=== PATIENT | female | born 1960 | race Hispanic/Latino ===

== ENCOUNTER 2017-06-11 05:47 | Inpatient (IN) | payer BC ==
--- NOTE | 2017-06-05 13:00 | Anesthesia Consultation ---
Anesthesia Consult and Med Hx Date of service: 06/05/17 - Airway Anesthetic Teeth Evaluation: Dentures ROM Head & Neck: Adequate Mental/Hyoid Distance: Adequate Mallampati Class: Class I Intubation Access Assessment: Good - Pulmonary Exam CTA: Yes - Cardiac Exam Cardiac Exam: RRR - Pre-Operative Health Status ASA Pre-Surgery Classification: ASA3 Proposed Anesthetic Plan: General - Pulmonary Hx Smoking: Yes (30 yr history) - Cardiovascular System Hx Hypertension: No - Central Nervous System Hx Psychiatric Problems: No - Gastrointestinal Hx Ulcer: Yes - Endocrine Hx Non-Insulin Dependent Diabetes: No - Other Systems Hx Alcohol Use: Yes (occas) Hx Cancer: No
[2017-06-05 13:16] LABS: Basophils % (Auto) 0.9 % (0.0-1.8); Eosinophils % (Auto) 2.2 % (0.0-4.3); Hematocrit 52.6 % (30.3-42.9); Hemoglobin 17.9 gm/dl (10.1-14.3); Mean Corpuscular HGB Conc 34 % (30-34); Mean Corpuscular Hemoglobin 33 pg (28-32); Mean Corpuscular Volume 97 fl (79-97); Platelet Count 282 K/mm3 (140-440); Red Blood Count 5.41 M/mm3 (3.65-5.03); Red Cell Distribution Width 12.1 % (13.2-15.2); White Blood Count 7.7 K/mm3 (4.5-11.0)
[2017-06-05 13:17] LABS: INR 0.96 (0.87-1.13)
[2017-06-05 13:19] LABS: Anion Gap 20 mmol/L; Blood Urea Nitrogen 5 mg/dL (7-17); Calcium 9.7 mg/dL (8.4-10.2); Carbon Dioxide 25 mmol/L (22-30); Chloride 94.6 mmol/L (98-107); Glucose 98 mg/dL (65-100); Potassium 4.1 mmol/L (3.6-5.0); Sodium 135 mmol/L (137-145)
--- NOTE | 2017-06-06 14:18 | Admit Criteria Form ---
Admission Criteria Documentation: AMBULATORY SURGERY EXCEPTION CRITERIA Ambulatory Surgery Exception Criteria ( Place 'X' for any and all applicable criteria): Surgery or procedure performed on ambulatory basis may require inpatient stay for[A] ANY ONE of the following(1)(2)(3)(4)(5)(6)(7)(8)(9): [X] I. A preoperative situation, condition, or finding that warrants inpatient stay as indicated by ANY ONE of the following: [] a) Inpatient care needed because of severity of a disease or condition rather than the surgery (eg, severe cardiac or respiratory disease, severe infection) (15) (16 ) (17) (18) [] b) Emergent procedure (eg, angioplasty for acute ischemia)(19) [] c) Complex surgical approach or situation as indicated by ANY ONE of the following(3): [] i) Open approach needed instead of usual endoscopic, transcatheter, or other less invasive procedure [] ii) Difficult approach because of previous operation [] iii) Airway monitoring required after open neck procedures(20)(21) [] iv) Large mass requiring unusually extensive dissection [] v) Additional complicating feature requiring inpatient care (eg, drain management)(22(23): [X] d) Major surgery in a pt with high anesthetic risk as indicated by ANY ONE of the following (2)(3)(5)(7)(8): [X] i) ASA risk class III or higher (severe systemic disease impairing function) [D] [] ii) Advanced age (eg, older than 85 years)(14)(24) [] iii) Symptomatic heart failure(25) [] iv) Symptomatic asthma or COPD(8)(21) [] v) Morbid obesity with hemodynamic or respiratory problems(20)( 21)(26)(27) [] vi) Obstructive sleep apnea(20)(21) [] vii) Former premature infants who are younger than 60 weeks [] viii) High risk for severe postoperative abnormalities (eg, severe postoperative hypocalcemia after parathyroidectomy for severe hyperparathyroidism)(27)( 28) [] ix) Unstable angina(25) [] e) Drug-related risk requiring inpatient stay as indicated by ANY ONE of the following(5)(10)(14)(32)(33) [] i) Procedure requires discontinuing drugs or other therapy (eg , antiarrhythmic medication, antiseizure medication), which necessitates inpatient observation or treatment.(18)(31) [] ii) Major surgery and high risk drug use as indicated by ANY ONE of the following: [] 1) Active abuse of cocaine or similar drug [] 2) Monoamine oxidase inhibitor use [] 3) Other drug identified as posing risk [] f) Inadequate outpatient care situation as indicated by ANY ONE of the following(5)(10)(14)(32)(33) [] i) Patient lives remote from medical facility and procedure has urgent complication potential, and temporary nearby residence cannot be arranged [] ii) Patient will have postprocedure incapacitation and inadequate assistance at home, or alternative level of care cannot be arranged. [] iii) Patient will have long general anesthesia or procedure side effect resolution time, and competent person to stay with patient on first postoperative night at home or alternative level of care cannot be arranged. []iv) Other inadequate outpatient situation that cannot be handled by other means [] II. A perioperative event, condition, or finding that warrants inpatient stay as indicated by ANY ONE of the following (1)(2)(3): [] a) Inadequate physiologic recovery: cardiovascular, respiratory, or hemodynamic status not normal or near preoperative baseline(18) [] b) Hemodynamic instability [] c) Patient not alert with near normal or baseline mental status [] d) Temperature not normal or as expected and not appropriate for outpatient treatment of condition [] e) Ambulatory or appropriate activity level status not yet achieved post procedure [E](34)(35)(36) [] f) Operative site not appropriate (eg, unexpected or excessive drainage or bleeding) [] g) Postoperative effects not resolved or adequately managed (eg, significant pain or vomiting not appropriate for outpatient or next level of care)(10)(12) [] h) Complicating features requiring inpatient care as indicated by ANY ONE of the following(37): [] i) Severe complications of procedure (eg, bowel injury, airway compromise, vascular injury,severe hemorrhage) [] ii) Extensive (eg, dissection far beyond usual scope of procedure ) or prolonged (eg, 120 minutes beyond usual) surgery needed requiring inpatient postoperative care [] iii) Conversion to an open or complex procedure that requires inpatient care (eg, open vs laparoscopic cholecystectomy, abdominal vs vaginal hysterectomy)(38) [] iv) Comorbid condition or test result identified during or post procedure that requires inpatient care (7) [] v) Malignant hyperthermia(30) [] vi) Other complicating feature requiring inpatient care(22)(23) Inpatient stay may be needed until ALL of the following are present (1)(2)(3)(4) (5)(6)(10)(14)(33)(40): []a) Physiologic recovery: cardiovascular, respiratory, and hemodynamic status normal or near preoperative baseline []b) Hemodynamic stability []c) Patient alert, with near normal or baseline mental status []d) Temperature appropriate: patient afebrile or temperature appropriate for outpt treatment of condition []e) Activity level appropriate: ambulatory or appropriate activity level post procedure []f) Operative site appropriate as indicated by ALL of the following: []i) Site dry or with expected drainage []ii) Any blood noted is as expected for procedure. []g) Postoperative effects resolved or managed as indicated by ALL of the following: []i) Pain management appropriate for outpatient (or next level of) care(10) []ii) Minimal nausea and vomiting: if present, successfully treated with oral medication(12) []iii) Headache, dizziness, or drowsiness (if present) are mild. []h) Voiding status acceptable as indicated by ANY ONE of the following: []i) Voiding spontaneously []ii) No voiding but instructions given for follow-up in 6 to 8 hours []iii) Urinary catheter in place, and instructions given for follow-up []i) Complicating features requiring inpatient care manageable at a lower level of care(37) []j) Comorbid conditions manageable at a lower level of care(37) The original [employer] content created by [employer] has been revised. The portions of the content which have been revised are identified through the use of italic text or in bold, and [facility] [employer] has neither reviewed nor approved the modified material. All other unmodified content is copyright [employer]. Please see references footnoted in the original [employer] edition 2016 Admission Criteria Met: Yes
[2017-06-11] MEDS ORDERED: ANCEF/STERILE WATER 2 GM/20 ML 2 GM/20 ML SYRINGE IV NR (06:00)
[2017-06-11] MEDS ORDERED: NACL BACTERIOSTATIC INFILTRATI ONE (06:39)
[2017-06-11] MEDS ORDERED: NACL 0.9% 1000 ML 1,000 ML IV SCH ×2 (07:00→12:00)
[2017-06-11] MEDS ORDERED: VERSED IV NR (07:00)
[2017-06-11] MEDS ORDERED: SUBLIMAZE ONE (07:23)
[2017-06-11] MEDS ORDERED: XYLOCAINE MPF 2% ONE (07:23)
[2017-06-11] MEDS ORDERED: ZEMURON IV ONE (07:23)
[2017-06-11] MEDS ORDERED: AMIDATE IV ONE (07:23)
[2017-06-11] MEDS ORDERED: DIPRIVAN 10 MG/ML IV ONE (07:24)
[2017-06-11] MEDS ORDERED: PROTAMINE SULFATE ONE (07:45)
[2017-06-11] MEDS ORDERED: PAPAVERINE ONE (07:45)
[2017-06-11] MEDS ORDERED: RIFADIN ONE (07:46)
[2017-06-11] MEDS ORDERED: XYLOCAINE 1% MPF 5 mL ONE (07:46)
[2017-06-11] MEDS ORDERED: NACL 0.9% 500 ML 500 ML ONE (07:46)
[2017-06-11] MEDS ORDERED: MARCAINE 0.25% INFILTRATI ONE (07:46)
[2017-06-11] MEDS ORDERED: GELFOAM TP ONE (07:46)
[2017-06-11] MEDS ORDERED: THROMBIN (BOVINE) TP ONE (07:46)
[2017-06-11] MEDS ORDERED: HEPARIN 10,000 UNITS/10 ML ONE (07:46)
[2017-06-11] MEDS ORDERED: ePHEDrine SULFATE ONE (09:12)
[2017-06-11] MEDS ORDERED: HEPARIN 10,000 UNITS/10 ML 2,000 UNIT in NACL 0.9% 500 ML 500 ML IR ONE (09:39)
[2017-06-11] MEDS ORDERED: MARCAINE 0.5% INFILTRATI ONE ×2 (09:39)
[2017-06-11] MEDS ORDERED: NACL 0.9% IR ONE (09:39)
[2017-06-11] MEDS ORDERED: RIFADIN 600 MG in NACL 0.9% 50 ML IR ONE (09:40)
[2017-06-11] MEDS ORDERED: NEO SYNEPHRINE ONE (10:22)
[2017-06-11] MEDS ORDERED: ZOFRAN ONE (10:22)
[2017-06-11] MEDS ORDERED: NACL 0.9% 100 ML ONE (10:22)
[2017-06-11] MEDS ORDERED: DECADRON ONE (10:22)
[2017-06-11] MEDS ORDERED: NEOSTIGMINE ONE (11:02)
[2017-06-11] MEDS ORDERED: ROBINUL ONE (11:02)
[2017-06-11] MEDS ORDERED: MORPHINE IV PRN (11:05)
[2017-06-11] MEDS ORDERED: NORCO 5/325 PO PRN (11:05)
--- NOTE | 2017-06-11 11:21 | Operative Report ---
Operative Report Operative Report: Date of procedure: 06/11/2017 Pre-operative diagnosis: Right Carotid Artery Stenosis Post-operative diagnosis: Right Carotid Artery Stenosis Procedure(s): 1. Right Carotid Endarterectomy With Patch Angioplasty 2. Intraoperative Completion Duplex Surgeon: Basim Hyatt MD Dope Mixer: Laura Rodriguez M.D. Anesthesia: General Endotracheal Anesthesia EBL: 150 mL Findings: Significant internal right carotid artery stenosis. Specimen: Right Carotid Plaque Counts: Correct Complications: None Condition: Stable Indication: The patient is a 56-year-old female with a history of asymptomatic carotid artery stenosis was identified on carotid duplex. She had a CT that confirmed the diagnosis of greater than 80% stenosis without any other significant findings. She had cardiac clearance and was otherwise found to be a suitable candidate for carotid endarterectomy. She was given the risk, benefits, and alternative procedures and consented to the procedure. Description of Procedure: The patient was brought to the operating room and laid in supine position. After general endotracheal anesthesia was achieved the patient was placed in beachchair position with her head elevated and turned slightly to the left. The patient's neck and chest were prepped and draped in normal fashion. An oblique incision was then created along the anterior border of the sternocleidomastoid. The incision was then carried down to the facial vein using sharp dissection. The facial vein was then dissected out circumferentially, suture ligated and divided. The dissection was then carried down to the common carotid using sharp dissection. The common carotid artery was dissected out circumferentially taking care to avoid the vagus nerve which was identified and avoided. The artery was then controlled with a large vessel loop. The dissection was carried up along the external carotid and the superficial thyroid artery was identified dissected out circumferentially and controlled with a 2-0 silk. The external carotid was dissected out and controlled a small vessel loop. I then dissected out the internal carotid artery well above the plaque which was identified by a change in hue of the artery from yellow to blue and palpation of the artery over a right angle. The hypoglossal nerve was identified and avoided. I controlled the internal carotid artery with a small vessel and at this point the patient was systemically heparinized with heparin IV. Once the heparin had circulated for 3 minute I clamped the internal carotid artery followed by the common carotid and then the external Carotid artery. I created an arteriotomy extending from the common carotid into the internal carotid, well above the plaque, using an 11 blade and Jerez scissors. I then flashed the internal carotid artery to check for adequate backbleeding. Once ensure there was adequate backbleeding reclamped the artery and used a [place] blade to dissect the plaque away from the artery. I used a right angle to continue the dissection of this plane from lateral to medial and then divided the plaque using Jerez scissors. I then trimmed the plaque proximally using Jerez and then teased the plaque away from the distal endpoint insuring that there were no areas of dissection or intimal flaps. These plaque forceps to remove all loose debris and then flushed the artery with heparinized saline. I then closed the artery using the Dacron patch and two 6-0 Prolenes in running fashion. Prior to completing the closure I flushed all arteries to remove all loose debris and then flushed the artery with heparinized saline. I then completed the closure in an flashed the internal carotid, reclamped and then removed the clamp from the common carotid followed by the external carotid and allowed any loose debris to flush into the external carotid. I then removed the clamp from the internal carotid artery. Hemostasis was achieved with repair sutures with 6-0 Prolene in interrupted fashion and a combination of direct pressure with Quick Clot. Once hemostasis was achieved I performed an intraoperative duplex that demonstrated no evidence of dissection and normalization of internal carotid velocity. I then anesthetized the wound with Marcaine and closed in 2 layers using a 3-0 Vicryl in running in the deep dermal layer and a 4-0 Monocryl in running in the subcuticular layer and dressed it with the Surgiseal. The patient tolerated the procedure well all sponge needle and instrument counts were correct the patient was taken to the recovery area in stable condition.
[2017-06-11] MEDS ORDERED: NIPRIDE 50 MG in D5W 248 ML IV SCH (12:00)
[2017-06-11] MEDS ORDERED: INTROPIN DRIP 800 MG/D5W 250 ML 800 MG/250 ML BAG IV SCH (12:00)
[2017-06-11] MEDS ORDERED: ANCEF/NS 1 GM/50 ML 1 GM/50 ML BAG IV SCH (12:00)
--- NOTE | 2017-06-11 12:13 | Post Anesthesia Evaluation ---
- Post Anesthesia Evaluation Patient Participated: Yes Airway Patent: Yes Stable Respiratory Function: Yes Nausea/Vomiting: No Temp > 96.8F: Yes Pain Manageable: Yes Adequeate Hydration: Yes Anesthesia Complications: No Block Receding Appropriately: Not Applicable Patient on Ventilator: No
[2017-06-11] MEDS: DILAUDID IV PRN ×2 (12:20→12:35)
[2017-06-11] MEDS: ANCEF/NS 1 GM/50 ML 1 GM/50 ML BAG IV SCH (16:23)
[2017-06-11] MEDS ORDERED: NON-FORMULARY (Lovastatin [Altoprev] 40 MG) PO SCH (18:00)
[2017-06-11] MEDS ORDERED: ZOCOR PO SCH (22:00)
[2017-06-12] MEDS: COLACE PO SCH ×2 (00:11→09:17)
[2017-06-12] MEDS: ANCEF/NS 1 GM/50 ML 1 GM/50 ML BAG IV SCH (01:00)
[2017-06-12] MEDS ORDERED: PLAVIX PO SCH (10:00)
--- NOTE | 2017-06-12 11:24 | Consultation ---
History of Present Illness - Reason for Consult Consult date: 06/12/17 Post ICU monitoring Requesting physician: GERMAINE LEWIS - History of Present Illness 56 y/o female, status post right carotid. Transitioned to the ICU and did require dopamine briefly. Off now. Stable. Needs to get up and out of bed. No chest pain, no shortness of breath. Past History Past Medical History: hyperlipidemia, other Past Surgical History: Other Social history: no significant social history Family history: no significant family history Medications and Allergies Allergies Allergy/AdvReac Type Severity Reaction Status Date / Time codeine Allergy severe N&V Verified 06/04/17 18:26 Home Medications Medication Instructions Recorded Confirmed Last Taken Type Clopidogrel Bisulfate [Plavix] 75 mg PO DAILY 06/04/17 06/04/17 06/10/17 History Lovastatin [Altoprev] 40 mg PO QPM 06/04/17 06/04/17 06/10/17 History Active Meds: Active Medications Acetaminophen/Hydrocodone Bitart (Blossom 5/325) 1 each PO Q6H PRN PRN Reason: Pain, Moderate (4-6) Clopidogrel Bisulfate (Plavix) 75 mg PO DAILY DEB Last Admin: 06/12/17 09:17 Dose: 75 mg Docusate Sodium (Colace) 100 mg PO BID DEB Last Admin: 06/12/17 09:17 Dose: 100 mg Sodium Chloride (Nacl 0.9% 1000 Ml) 1,000 mls @ 100 mls/hr IV DIRECT DEB Last Admin: 06/11/17 07:05 Dose: 100 mls/hr Dopamine HCl/Dextrose (Intropin Drip 800 Mg/D5w 250 Ml) 800 mg in 250 mls @ 5.101 mls/hr IV TITR DEB; 5 MCG/KG/MIN PRN Reason: Protocol Last Admin: 06/11/17 13:10 Dose: 3 mcg/kg/min, 3.06 mls/hr Sodium Nitroprusside 50 mg/ (Dextrose) 250 mls @ 4.08 mls/hr IV TITR DEB; 0.25 MCG/KG/MIN PRN Reason: Protocol Sodium Chloride (Nacl 0.9% 1000 Ml) 1,000 mls @ 100 mls/hr IV DIRECT DEB Last Admin: 06/11/17 23:37 Dose: 100 mls/hr Morphine Sulfate (Morphine) 2 mg IV Q4H PRN PRN Reason: Pain, Moderate (4-6) Last Admin: 06/12/17 00:11 Dose: 2 mg Simvastatin (Zocor) 20 mg PO QHS [facility] Last Admin: 06/11/17 23:40 Dose: 20 mg Review of Systems All systems: negative Exam - Constitutional Vitals: Temp Pulse Resp BP Pulse Ox 98.6 F 78 19 125/83 99 06/12/17 04:00 06/12/17 10:41 06/12/17 10:41 06/12/17 10:41 06/12/17 10:41 General appearance: Present: no acute distress - EENT Eyes: Present: PERRL, EOM intact ENT: hearing intact, clear oral mucosa, dentition normal - Neck Neck: Present: supple, other (post surgical changes) - Respiratory Respiratory effort: normal Respiratory: bilateral: CTA - Cardiovascular Rhythm: regular Heart Sounds: Present: S1 & S2 - Rectal Rectal Exam: deferred - Psychiatric Psychiatric: appropriate mood/affect Results - Labs CBC & Chem 7: 06/05/17 12:14 06/05/17 12:14 Assessment and Plan 56 y/o female, status post CEA 1. OOB to chair, and mobilize 2. Anticoagulation 3. Hopeful transition out of ICU today.
--- NOTE | 2017-06-12 11:29 | Progress Note ---
Assessment and Plan Plan: s/p Right CEA. Doing well - no pain, with normal exam If patient ambulates, we can plan for d/c later today. Subjective Date of service: 06/12/17 Interval history: No overnight events. Patient feels well overall. No n/v, headaches or dizziness. No significant pain reported. Objective - Constitutional Vitals: Vital Signs - 12hr 06/12/17 06/12/17 06/12/17 00:00 00:21 00:31 Temperature 98.6 F Pulse Rate 72 71 Pulse Rate [ 73 From Monitor] Respiratory 16 21 16 Rate Blood Pressure 106/64 106/64 O2 Sat by Pulse 96 97 97 Oximetry 06/12/17 06/12/17 06/12/17 00:41 00:51 01:00 Temperature Pulse Rate 76 71 65 Pulse Rate [ From Monitor] Respiratory 15 15 16 Rate Blood Pressure 106/64 106/64 102/60 O2 Sat by Pulse 98 98 98 Oximetry 06/12/17 06/12/17 06/12/17 01:11 01:21 01:31 Temperature Pulse Rate 65 67 71 Pulse Rate [ From Monitor] Respiratory 15 16 14 Rate Blood Pressure 102/60 102/60 102/60 O2 Sat by Pulse 98 99 99 Oximetry 06/12/17 06/12/17 06/12/17 01:41 01:51 02:00 Temperature Pulse Rate 67 92 H 69 Pulse Rate [ From Monitor] Respiratory 12 17 17 Rate Blood Pressure 102/60 102/60 116/73 O2 Sat by Pulse 98 99 98 Oximetry 06/12/17 06/12/17 06/12/17 02:11 02:21 02:31 Temperature Pulse Rate 68 67 72 Pulse Rate [ From Monitor] Respiratory 15 14 19 Rate Blood Pressure 116/73 116/73 116/73 O2 Sat by Pulse 98 98 98 Oximetry 06/12/17 06/12/17 06/12/17 02:41 02:51 03:01 Temperature Pulse Rate 66 70 72 Pulse Rate [ From Monitor] Respiratory 17 15 17 Rate Blood Pressure 116/73 116/73 110/70 O2 Sat by Pulse 99 98 99 Oximetry 06/12/17 06/12/17 06/12/17 03:11 03:21 03:31 Temperature Pulse Rate 70 72 84 Pulse Rate [ From Monitor] Respiratory 15 14 15 Rate Blood Pressure 110/70 110/70 110/70 O2 Sat by Pulse 98 98 99 Oximetry 06/12/17 06/12/17 06/12/17 03:41 03:51 04:00 Temperature 98.6 F Pulse Rate 73 77 85 Pulse Rate [ 72 From Monitor] Respiratory 16 13 13 Rate Blood Pressure 110/70 110/70 115/78 O2 Sat by Pulse 98 98 97 Oximetry 06/12/17 06/12/17 06/12/17 04:11 04:21 04:31 Temperature Pulse Rate 67 69 74 Pulse Rate [ From Monitor] Respiratory 14 17 16 Rate Blood Pressure 115/78 115/78 115/78 O2 Sat by Pulse 98 98 98 Oximetry 06/12/17 06/12/17 06/12/17 04:41 04:51 05:00 Temperature Pulse Rate 70 73 70 Pulse Rate [ From Monitor] Respiratory 16 16 16 Rate Blood Pressure 115/78 115/78 125/75 O2 Sat by Pulse 97 98 98 Oximetry 06/12/17 06/12/17 06/12/17 05:11 05:21 05:31 Temperature Pulse Rate 66 69 68 Pulse Rate [ From Monitor] Respiratory 14 17 12 Rate Blood Pressure 125/75 125/75 125/75 O2 Sat by Pulse 97 96 97 Oximetry 06/12/17 06/12/17 06/12/17 05:41 05:51 06:00 Temperature Pulse Rate 66 71 69 Pulse Rate [ From Monitor] Respiratory 14 15 15 Rate Blood Pressure 125/75 125/75 121/75 O2 Sat by Pulse 98 98 98 Oximetry 06/12/17 06/12/17 06/12/17 06:11 06:21 06:31 Temperature Pulse Rate 71 69 72 Pulse Rate [ From Monitor] Respiratory 15 15 18 Rate Blood Pressure 121/75 121/75 121/75 O2 Sat by Pulse 97 97 99 Oximetry 06/12/17 06/12/17 06/12/17 06:41 06:51 07:00 Temperature Pulse Rate 72 69 70 Pulse Rate [ From Monitor] Respiratory 17 17 19 Rate Blood Pressure 121/75 121/75 127/70 O2 Sat by Pulse 96 98 96 Oximetry 06/12/17 06/12/17 06/12/17 07:11 07:21 07:31 Temperature Pulse Rate 70 72 70 Pulse Rate [ From Monitor] Respiratory 12 15 16 Rate Blood Pressure 127/70 127/70 127/70 O2 Sat by Pulse 98 99 97 Oximetry 06/12/17 06/12/17 06/12/17 07:41 07:51 08:00 Temperature Pulse Rate 70 72 76 Pulse Rate [ 76 From Monitor] Respiratory 20 19 19 Rate Blood Pressure 127/70 127/70 131/81 O2 Sat by Pulse 98 98 98 Oximetry 06/12/17 06/12/17 06/12/17 08:11 08:21 08:31 Temperature Pulse Rate 69 69 71 Pulse Rate [ From Monitor] Respiratory 14 17 19 Rate Blood Pressure 130/81 130/81 130/81 O2 Sat by Pulse 98 98 97 Oximetry 06/12/17 06/12/17 06/12/17 08:41 08:51 09:00 Temperature Pulse Rate 73 74 72 Pulse Rate [ From Monitor] Respiratory 18 16 18 Rate Blood Pressure 130/81 130/81 114/66 O2 Sat by Pulse 96 96 97 Oximetry 06/12/17 06/12/17 06/12/17 09:11 09:21 09:31 Temperature Pulse Rate 73 72 71 Pulse Rate [ From Monitor] Respiratory 15 23 19 Rate Blood Pressure 114/66 114/66 114/66 O2 Sat by Pulse 98 96 97 Oximetry 06/12/17 06/12/17 06/12/17 09:41 09:51 10:00 Temperature Pulse Rate 78 79 76 Pulse Rate [ From Monitor] Respiratory 23 18 17 Rate Blood Pressure 114/66 114/66 125/83 O2 Sat by Pulse 97 98 97 Oximetry 06/12/17 06/12/17 06/12/17 10:11 10:21 10:31 Temperature Pulse Rate 77 77 74 Pulse Rate [ From Monitor] Respiratory 18 25 H 22 Rate Blood Pressure 125/83 125/83 125/83 O2 Sat by Pulse 99 100 98 Oximetry 06/12/17 10:41 Temperature Pulse Rate 78 Pulse Rate [ From Monitor] Respiratory 19 Rate Blood Pressure 125/83 O2 Sat by Pulse 99 Oximetry General appearance: Present: no acute distress - EENT Eyes: PERRL ENT: hearing intact - Neck Neck: supple, other (incision healing well. Dermabond in place. No hematoma or fullness.) - Respiratory Respiratory effort: normal - Cardiovascular Rhythm: regular - Gastrointestinal General gastrointestinal: Present: deferred - Integumentary Integumentary: clear, warm, dry - Musculoskeletal Musculoskeletal: 1, strength equal bilaterally - Neurologic Neurologic: moves all extremities - Psychiatric Psychiatric: memory intact, appropriate mood/affect, intact judgment & insight - Labs CBC & Chem 7: 06/05/17 12:14 06/05/17 12:14
--- NOTE | 2017-06-12 11:35 | Discharge Summary ---
Providers - Providers Date of Admission: 06/11/17 05:47 Date of discharge: 06/12/17 Attending physician: BASIM LEWIS 06/12/17 08:06 Consult to Physician [CONS] Routine Consulting Provider: NHUNG THAO Reason For Exam: Critical Care Management Place consult to:: Dr. Thao Notified:: yes Phone number called:: [phone] Was contact made?: Yes If yes, spoke with:: Dr. Thao Time called:: 08:06 Primary care physician: BRYCE BUI Hospitalization Reason for admission: rt carotid stenosis Condition: Good Procedures: ate of procedure: 06/11/2017 Pre-operative diagnosis: Right Carotid Artery Stenosis Post-operative diagnosis: Right Carotid Artery Stenosis Procedure(s): 1. Right Carotid Endarterectomy With Patch Angioplasty 2. Intraoperative Completion Duplex Surgeon: Basim Lewis MD Dat Instructor: Laura Rodriguez M.D. Hospital course: Patient was admitted with Rt. CEA. The surgery went well. Her postoperative course was uneventful. POD 1 she had no neurologic deficits and was not complaining of pain. Disposition: TO HOME OR SELFCARE - Discharge Diagnoses (1) Carotid artery disease Status: Resolved Qualifiers: Laterality: right Qualified Code(s): I77.9 - Disorder of arteries and arterioles, unspecified Core Measure Documentation - Palliative Care Palliative Care/ Comfort Measures: Not Applicable - Core Measures Any of the following diagnoses?: none Exam - Constitutional Vitals: Temp Pulse Resp BP Pulse Ox 98.6 F 78 19 125/83 99 06/12/17 04:00 06/12/17 10:41 06/12/17 10:41 06/12/17 10:41 06/12/17 10:41 General appearance: Present: no acute distress, well-nourished - EENT Eyes: Present: PERRL ENT: hearing intact, clear oral mucosa - Neck Neck: Present: supple, normal ROM, other (incision CDI, no hematoma) - Respiratory Respiratory: bilateral: CTA - Cardiovascular Heart Sounds: Present: S1 & S2. Absent: rub, click - Extremities Extremities: pulses symmetrical, No edema - Integumentary Integumentary: Present: clear, warm, dry - Musculoskeletal Musculoskeletal: gait normal, strength equal bilaterally - Psychiatric Psychiatric: appropriate mood/affect, intact judgment & insight - Neurologic Neurologic: CNII-XII intact, moves all extremities Plan Activity: advance as tolerated Weight Bearing Status: Full Weight Bearing Diet: low cholesterol Wound: keep clean and dry Special Instructions: no heavy lifting (for one week) Follow up with: BRYCE BUI JR, MD [Primary Care Provider] - 7 Days BASIM LEWIS MD [Staff Physician] - 14 Days Prescriptions: HYDROcodone/APAP 5-325 [Maud 5-325 mg TAB] 1 each PO Q6H PRN #14 tablet PRN Reason: Pain, Moderate (4-6) Ondansetron [Zofran ODT TAB] 8 mg PO Q8HR PRN #20 tab.rapdis PRN Reason: Nausea And Vomiting
[2017-06-12 12:26] VITALS: BP 137/77
--- NOTE | 2017-06-12 15:53 | Vascular Lab Report ---
INTRAOPERATIVE CAROTID ARTERY DUPLEX Reason for exam: Completion of carotid endarterectomy Comments on the left: The common and internal carotid arteries are patent without evidence of intraluminal irregularities. Flow velocities appear to be appropriate. No obvious technical defects at the endarterectomy site appreciated. Impression: No obvious technical imperfections at the endarterectomy site.
== END 2017-06-12 13:20 | disposition home or self-care (01) | DRG 39 ==
LOC: 3A 05:47 → CC1 18:42
PROVIDERS: ADMIT Surgery Vascular Surgery; ATTEND Surgery Vascular Surgery
PROC: 03CK0ZZ Extirpation of Matter from Right Internal Carotid Artery, Open Approach (ICD-10-PCS; principal; 2017-06-11)
PROC: 03UK0JZ Supplement Right Internal Carotid Artery with Synthetic Substitute, Open Approach (ICD-10-PCS; 2017-06-11)
DX: I65.21 Occlusion and stenosis of right carotid artery (principal); E78.5 Hyperlipidemia, unspecified; F17.210 Nicotine dependence, cigarettes, uncomplicated; Z88.5 Allergy status to narcotic agent
CPT/HCPCS: 36415; 36620; 80048; 85025; 85610; 88304; 88311; A4649; C1768; J0690; J1100; J1170; J1265; J1644; J2250; J2270; J2370; J2405; J2440; J2704; J2710; J2720; J3010; J3490; J7030; J7040